=== PATIENT | female | born 1985 | race African-American/Black ===

== ENCOUNTER 2023-05-28 12:25 | Outpatient (CLI) | payer MEDICAID, SELFPAY ==
[2023-05-28 16:26] LABS: Chlamydia DNA Amplified* Not Detected (No Detected); GC DNA Amplified* Not Detected (No Detected)
== END 2023-05-28 12:26 | disposition home or self-care (01) ==
LOC: NFLDREF 12:26
PROVIDERS: PCP Family Medicine; Visit Provider Registered Nurse
DX: N89.8 Other specified noninflammatory disorders of vagina (principal); Z11.3 Encounter for screening for infections with a predominantly sexual mode of transmission
CPT/HCPCS: 87491; 87591

== ENCOUNTER 2023-05-30 16:56 | Outpatient (CLI) | payer MEDICAID, SELFPAY ==
--- NOTE | 2023-05-30 17:00 | US_ITS ---
Patient: THEO TREVIZO Facility:?[facility] Patient ID:?[id number] Site Patient [id number]:?[id number]. Site :?[id number] Study:?US-Pelvis -05/30/2023 5:38:26 PM Ordering Physician:?KEELY BRADY Final Report: INDICATION: Pelvic pain. History of fibroids. TECHNIQUE: Transabdominal and transvaginal ultrasound examination of the pelvis was performed. Grayscale and color Doppler images were obtained. COMPARISON: Pelvic ultrasound 05/17/2021. FINDINGS: Uterus: Measures 12.7 x 4.6 x 6.3 cm. Normal in echotexture. There are numerous hypoechogenic uterine masses, likely uterine fibroids., measuring up to 1.1 x 0.8 x 1.1 cm. Endometrium: 12 mm. No significant endometrial free fluid. Right Ovary: Measures 3.3 x 1.7 x 2.5 cm. No suspicious masses. Normal arterial and venous flow on color Doppler imaging. Left ovary: Measures 6.4 x 4.5 x 5.5 cm. There is a unilocular, simple appearing left ovarian cyst measuring 4.5 x 4.1 x 4.1 cm. Normal arterial and venous flow on color Doppler imaging. Cul-de-sac: No free fluid. IMPRESSION: Multiple uterine fibroids, measuring up to 1.1 cm. If clinically warranted, pelvic MR with and without contrast may be obtained for improved characterization. Dictated by Ede Covarrubias MD @ 05/31/2023 1:51:32 AM Signed by:?Ede Covarrubias MD @05/31/2023 1:51:32 AM (Electronic Signature)
== END 2023-05-30 16:57 | disposition home or self-care (01) ==
PROVIDERS: PCP Family Medicine; Visit Provider Registered Nurse
DX: R10.2 Pelvic and perineal pain (principal); D25.9 Leiomyoma of uterus, unspecified; Z86.018 Personal history of other benign neoplasm
CPT/HCPCS: 76830; 76856; 93976

== ENCOUNTER 2024-01-31 11:10 | Emergency (ER) | payer MEDICAID, SELFPAY ==
[2024-01-31 11:41] VITALS: BP 107/72; PULSE 85; RESP 18; TEMP 36.9; O2SAT 98; BMI 25.4
== END 2024-01-31 12:06 | disposition left against medical advice (07) ==
LOC: ED 12:05
PROVIDERS: PCP Family Medicine
DX: Z53.21 Procedure and treatment not carried out due to patient leaving prior to being seen by health care provider (principal)

== ENCOUNTER 2024-02-24 08:53 | Outpatient (CLI) | payer MEDICAID, SELFPAY ==
--- NOTE | 2024-02-24 09:15 | CRLHL7_ITS ---
For Patients: As a result of the Century Cures Act, medical imaging exams and procedure reports are released immediately into your electronic medical record. You may view this report before your referring provider. If you have questions, please contact your health care provider. INDICATION: Benign neoplasm of connective and other soft tissue COMPARISON: 05/30/2023 TECHNIQUE: 2D flanagan scale and color Doppler images were acquired of the pelvis using a transabdominal and transvaginal approach. FINDINGS: Heterogeneous fibroid within the uterus adjacent to the endometrium is similar measuring 12 x 12 x 14 millimeters, previously measuring 11 x 8 x 11 millimeters. Uterus measures 13.2 cm in length by 4.9 cm in AP diameter by 6.6 cm in transverse dimension. The myometrium has a heterogeneous echotexture. The endometrial lining measures 10 mm in composite thickness. The right ovary measures 3.9 x 1.9 x 2.9 cm in size and the left ovary measures 3.4 x 1.9 x 2.8 cm. The ovaries demonstrate normal arterial and venous blood flow on color Doppler analysis. There are no suspicious fluid collections within the cul-de-sac. Incidental hyperechoic focus within the right ovary again noted measuring 4 x 4 x 5 millimeters. IMPRESSION: Similar intramural fibroid measuring 1.4 cm adjacent to the endometrium. Endometrial thickness 10 millimeters. Stable incidental hyperechoic focus within the right ovary measuring 5 millimeters. Resolution of the previously noted left ovarian cyst. Dictated by Bravo Abdalla MD @ 02/24/2024 12:28:20 PM (Electronically Signed)
== END 2024-02-24 08:54 | disposition home or self-care (01) ==
LOC: US 08:54
PROVIDERS: PCP Family Medicine; Visit Provider Obstetrics & Gynecology
DX: D21.9 Benign neoplasm of connective and other soft tissue, unspecified (principal); D25.1 Intramural leiomyoma of uterus; R93.89 Abnormal findings on diagnostic imaging of other specified body structures; R10.2 Pelvic and perineal pain; N92.0 Excessive and frequent menstruation with regular cycle
CPT/HCPCS: 76830; 76856

== ENCOUNTER 2024-07-29 14:00 | Outpatient (CLI) | payer MEDICAID, SELFPAY | END 2024-07-29 14:01 | disposition home or self-care (01) | LOC: NFLDREF 14:20 | PROVIDERS: PCP Registered Nurse; Visit Provider Registered Nurse | DX: R07.89 Other chest pain (principal) | CPT/HCPCS: 80053 ==